=== PATIENT | female | born 1990 | race Caucasian/White ===

== ENCOUNTER → 2016-12-06 | Outpatient (CLI) | payer OTHER ==
[~2016-12-06] MED LIST: ANT25 PO; ASCO500T16 PO; DOXY100T17 PO; magnesium PO
[2016-12-06 18:27] LABS: URINE APPEARANCE CLEAR (CLEAR); URINE BILIRUBIN NEG (NEG); URINE COLOR YELLOW; URINE EPITHELIAL CELL AUTO >30 /lpf (0-5); URINE NITRITE NEG (NEG); URINE SPECIFIC GRAVITY 1.022 (1.000-1.030); UROBILINOGEN NEG (NEG)
[2016-12-06 18:36] LABS: MANUAL MICROSCOPIC REQUIRED? NO; REVIEW REQ? NO
== END | disposition home or self-care (01) ==
LOC: C.LABSPEC 17:04
PROVIDERS: ATTEND Obstetrics & Gynecology
DX: Z34.00 Encounter for supervision of normal first pregnancy, unspecified trimester (principal)

== ENCOUNTER → 2016-12-13 | Outpatient (CLI) | payer OTHER ==
[2016-12-16 09:25] LABS: CHLAMYDIA TRACH RNA*** NOT DETECTED (NOT DETECTED); GC (NEIS GONORRHOEAE)RNA** NOT DETECTED (NOT DETECTED)
== END | disposition home or self-care (01) ==
LOC: C.LABSPEC 17:43
PROVIDERS: ATTEND Obstetrics & Gynecology
DX: Z34.00 Encounter for supervision of normal first pregnancy, unspecified trimester (principal)

== ENCOUNTER → 2016-12-13 | Outpatient (CLI) | payer OTHER | END | disposition home or self-care (01) | LOC: C.PAPS 10:37 | PROVIDERS: ATTEND Obstetrics & Gynecology | DX: Z12.4 Encounter for screening for malignant neoplasm of cervix (principal) ==

== ENCOUNTER → 2016-12-13 | Outpatient (CLI) | payer OTHER ==
[2016-12-13 17:20] LABS: BASO % 0.2 %; BASO ABS # 0.02 K/uL (0-0.2); COMPLETE YES; EOS % 1.5 %; HEMATOCRIT 35.8 % (37-47); IG% 0.5 %; LYMPH % 25.5 %; LYMPH ABS # 2.17 K/uL (1.2-3.4); MEAN CELL VOLUME 90.4 fL (80-100); MEAN CORPUSCULAR HEMOGLOBIN 31.6 pg (25-34); MEAN CORPUSCULAR HGB CONC 34.9 g/dl (32-36); MEAN PLATELET VOLUME 10.9 fL (7.4-10.4); MONO % 7.2 %; NEUT % 65.1 %; PLATELET COUNT 179 K/uL (130-400); RED BLOOD COUNT 3.96 M/uL (4.2-5.4)
== END | disposition home or self-care (01) ==
LOC: C.LAB1850 16:16
PROVIDERS: ATTEND Obstetrics & Gynecology
DX: Z34.00 Encounter for supervision of normal first pregnancy, unspecified trimester (principal)

== ENCOUNTER → 2017-01-22 | Outpatient (CLI) | payer OTHER, BC ==
[2017-01-22 16:16] LABS: GTGD 50 Grams
== END | disposition home or self-care (01) ==
LOC: C.LAB1850 14:06
PROVIDERS: ATTEND Obstetrics & Gynecology
DX: Z34.02 Encounter for supervision of normal first pregnancy, second trimester (principal)

== ENCOUNTER → 2017-02-07 | Outpatient (CLI) | payer OTHER | END | disposition home or self-care (01) | LOC: C.LAB1850 08:51 | PROVIDERS: ATTEND Obstetrics & Gynecology | DX: O28.1 Abnormal biochemical finding on antenatal screening of mother (principal); Z3A.00 Weeks of gestation of pregnancy not specified ==

== ENCOUNTER → 2017-03-17 | Outpatient (CLI) | payer OTHER ==
[2017-03-17 18:34] LABS: URINE APPEARANCE CLEAR (CLEAR); URINE BILIRUBIN NEG (NEG); URINE COLOR YELLOW; URINE EPITHELIAL CELL AUTO >30 /lpf (0-5); URINE NITRITE NEG (NEG); URINE PH 6.5 (4.5-7.5); URINE SPECIFIC GRAVITY 1.018 (1.000-1.030); UROBILINOGEN NEG (NEG)
[2017-03-17 18:36] LABS: REVIEW REQ? NO
[2017-03-17 18:37] LABS: MANUAL MICROSCOPIC REQUIRED? NO
== END | disposition home or self-care (01) ==
LOC: C.LABSPEC 17:26
PROVIDERS: ATTEND Obstetrics & Gynecology
DX: Z34.02 Encounter for supervision of normal first pregnancy, second trimester (principal)

== ENCOUNTER → 2017-03-18 | Outpatient (CLI) | payer OTHER ==
[2017-03-18 09:38] LABS: HEMATOCRIT 34.7 % (37-47)
== END | disposition home or self-care (01) ==
LOC: C.LAB1850 08:50
PROVIDERS: ATTEND Obstetrics & Gynecology
DX: Z34.02 Encounter for supervision of normal first pregnancy, second trimester (principal)

== ENCOUNTER → 2017-05-12 | Outpatient (CLI) | payer OTHER | END | disposition home or self-care (01) | LOC: C.LABSPEC 17:42 | PROVIDERS: ATTEND Obstetrics & Gynecology | DX: Z34.03 Encounter for supervision of normal first pregnancy, third trimester (principal); Z3A.00 Weeks of gestation of pregnancy not specified ==